=== PATIENT | female | born 1945 | race American Indian/Alaskan Native ===

== ENCOUNTER 2016-04-01 09:54 | Outpatient (CLI) | payer MEDICARE ==
--- NOTE | 2016-04-06 07:25 | Vascular Lab Report ---
CAROTID DUPLEX STUDY: RIGHT PSVEDV CCA PROX:[id number] CCA DIST: 9530 ICA PROX: 7224 ICA MID:[id number] ICA DIST:[id number] ECA: [id number] VERT: 47 8 LEFT PSVEDV CCA PROX: 9518 CCA DIST: 8427 ICA PROX: 7620 ICA MID: 7927 ICA DIST:[id number] ECA: 6610 VERT: 73 19 REASON FOR EXAM: Carotid artery stenosis/carotid bruit. COMMENTS ON THE RIGHT: Doppler frequency analysis is consistent with 16 to 49 percent diameter reduction of the internal carotid artery. Minimal amount of plaque is seen. The common carotid artery is patent. The external carotid artery is patent. The vertebral artery has antegrade flow. COMMENTS ON THE LEFT: Doppler frequency analysis is consistent with 16 to 49 percent diameter reduction of the internal carotid artery. Minimal amount of plaque is seen. The common carotid artery is patent. The external carotid artery is patent. The vertebral artery has antegrade flow. IMPRESSION: Less than 50% diameter reduction in the internal carotid arteries bilaterally. Consider repeat carotid artery duplex in 12 months.
== END 2016-04-01 09:55 | disposition home or self-care (01) ==
LOC: VAS 09:54
PROVIDERS: ATTEND Internal Medicine
DX: I65.23 Occlusion and stenosis of bilateral carotid arteries (principal); I25.119 Atherosclerotic heart disease of native coronary artery with unspecified angina pectoris
CPT/HCPCS: 93880